=== PATIENT | male | born 1955 | race Caucasian/White ===

== ENCOUNTER 2017-05-24 06:06 | Day surgery (SDC) | payer MEDICARE ==
[~2017-05-24] VITALS: Ht 177.8 cm; Wt 97.8 kg
[~2017-05-24 06:06] MED LIST: ALBUS PO; CARV6.252 PO; FENO1TAB76 PO; IPRA.5I INH; LISI-363 PO; LOVA20TA PO; PRED20 PO; PRIL2.5P PO; ZITH250T PO
--- NOTE | 2017-05-24 06:56 | HHI.HP ---
History of Present Illness Chief Complaint: R>L leg claudication History of Present Illness 61 yo male with 200 yard claudication, no rest pain or tissue loss. Has tried exercise therapy without relief of sx. Presents for angiogram Past/Family/Social History Past Medical History CAD HTN PAD Past Surgical History CABG Social History former smoker Family History [place] Home Medications Active Scripts Azithromycin (Zithromax Z-Mil)250 Mg [id number] Mg PO DIRECTED #6 TAB 500 MG (2 TABLETS) PO ON DAY 1, THEN 250 MG (1 TABLET) PO ON DAYS 2 TO 5. Prov:Bjorn Sheth MD 07/16/14 Prednisone (Deltasone)20 Mg Tab60 Mg PO DAILY 4 Days Prov:Bjorn Sheth MD 07/16/14 Reported Medications Ipratropium [place] (Resp: Atrovent 0.5 mg/2.5 ml Neb)0.5 Mg/2.5 Ml Nebu0.5 Mg INH BID 07/16/14 Albuterol Sulfate 2 Mg/5 Ml Syp0.5 Mg PO BID 07/16/14 Omeprazole Magnesium 2.5 mg granule pkt (Prilosec 2.5 mg granule pkt)2.5 Mg PowUnknown Dose PO 07/16/14 Carvedilol 6.25 mg 6.25 Mg Tab6.25 Mg PO BID 07/16/14 Lisinopril 20 mg 20 Mg Tab20 Mg PO DAILY 07/16/14 Lovastatin 20 Mg Tab20 Mg PO HS 07/16/14 Fenofibrate (Tricor)48 Mg Tab16 Mg PO DAILY 07/16/14 Coded Allergies: No Known Allergies (Verified , 07/16/14) Review of Systems Constitutional: DENIES: Fever Cardiovascular: COMPLAINS OF: Syncope, Claudication, DENIES: Chest pain, Lower Extremity Edema Physical Exam Neuro: resting comfortably, no distress HEENT: NC/AT Neck: no JVD Heart: reg rate, no M Lungs: clear B Abdomen: NT Vascular: weak L femoral pulse no R pedal pulse Extremities: No C/C/E pending pending Assessment and Plan Plan life-style limiting claudication R LE plan for aortogram and LE angiogram with potential endovascular intervention Pt aware of risks and benefits and all questions answered. Operative side marked. To OR. Pankaj Camacho MD May 24, 2017 06:56
[2017-05-24] MEDS ORDERED: IPRA0.02 NEB (06:58)
[2017-05-24] MEDS ORDERED: ISOS30TA15 (06:58)
[2017-05-24] MEDS ORDERED: COQ-50CA2 PO (06:58)
[2017-05-24] MEDS ORDERED: AMLO10TA2 PO (06:58)
[2017-05-24] MEDS ORDERED: PRAV80TA2 PO (06:58)
[2017-05-24] MEDS ORDERED: LOSA100T PO (06:58)
[2017-05-24] MEDS ORDERED: OMEP10CA PO (06:58)
[2017-05-24] MEDS ORDERED: ASPI325T PO (06:58)
[2017-05-24] MEDS ORDERED: CARV12.52 PO (06:58)
[2017-05-24 07:08] VITALS: BP 156/81; PULSE 86; RESP 18; TEMP 98.7; O2SAT 96
[2017-05-24 07:31] LABS: BASOPHIL # 0.1 TH/MM3 (0-0.2); BASOPHIL % 0.6 % (0.0-2.0); EOSINOPHIL # 0.3 TH/MM3 (0-0.4); EOSINOPHIL % 2.6 % (0.0-4.0); HEMATOCRIT 42.5 % (39.0-51.0); HEMO FLAGS DIFF FINAL; LYMPH % 29.1 % (9.0-44.0); LYMPHOCYTE # 3.4 TH/MM3 (1.0-4.8); MEAN CORPUSCULAR HEMOGLOBIN 29.8 PG (27.0-34.0); MEAN CORPUSCULAR HGB CONC 34.2 % (32.0-36.0); MONO % 7.2 % (0.0-8.0); NEUT % 60.5 % (16.0-70.0); PLATELET COUNT 231 TH/MM3 (150-450); RED BLOOD COUNT 4.89 MIL/MM3 (4.50-5.90); RED CELL DISTRIBUTION WIDTH 13.3 % (11.6-17.2); WHITE BLOOD COUNT 11.5 TH/MM3 (4.0-11.0)
[2017-05-24 07:48] LABS: BICARBONATE 26.2 MEQ/L (21.0-32.0); POTASSIUM 3.7 MEQ/L (3.5-5.1)
[2017-05-24] MEDS ORDERED: HEPARIN SODIUM - IV 10,000 UNITS/10 ML VIAL ONE (07:51)
[2017-05-24] MEDS ORDERED: MIDAZOLAM HCL 5 MG/ML VIAL (1 ML) ONE (07:52)
[2017-05-24] MEDS ORDERED: SODIUM BICARBONATE 100 MEQ in D5W 1000 ML IV SCH (08:00)
[2017-05-24] MEDS ORDERED: IOHEXOL 300 MG/ML 50 ML BTL (for RAD DIAG) OTHER ONE ×2 (08:18→08:51)
[2017-05-24] MEDS ORDERED: IOHEXOL 300 MG/ML 100 ML BTL (for Rad CT) OTHER ONE (08:19)
[2017-05-24] MEDS ORDERED: ceFAZolin 2 GM PREMIX 50 ML ONE (08:46)
--- NOTE | 2017-05-24 09:11 | HHI.PR ---
Immediate Post Op Note Procedure Date: May 24, 2017 Pre Op Diagnosis: PAD, B LE with claudication Post Op Diagnosis: PAD, B LE with claudication Surgeon: Pankaj Camacho Mechanic Insulator(s): none Procedure: 1. Aortogram w/ R LE angiogram 2. L SUSAN CANDY FORMING MACHINE OPERATOR (8mm) 3. R SFA CANDY FORMING MACHINE OPERATOR and stent (6x150, 6x120 Protege) 4. L COTTAGE CHEESE MAKER Angioseal Findings: 1. Stenosis L SUSAN at bifurcation - successful CANDY FORMING MACHINE OPERATOR 2. occlusion R SFA - recanalized and CANDY FORMING MACHINE OPERATOR/stent Additional Information: palpable R PT at conclusion Complications: none Specimen(s) removed: none Estimated blood loss: 10mL Anesthesia: MAC Drains: None IVF Patient to: Other (DOCU) Patient Condition: Good Implant/Devices: SEE IMPLANT LOG (if applicable) Date/Time of Procedure: SEE SURGICAL CARE RECORD Pankaj Camacho MD May 24, 2017 09:11
[2017-05-24] MEDS ORDERED: CLOPIDOGREL 75 MG TAB PO ONE (09:15)
[2017-05-24] MEDS ORDERED: ASPIRIN 81 MG CHEW TAB ONE (09:37)
[2017-05-24] MEDS ORDERED: PLAV75TA29 PO (09:59)
[2017-05-25] MEDS ORDERED: ASPIRIN EC 81 MG TABEC PO SCH (09:00)
[2017-05-26] MEDS ORDERED: CLOPIDOGREL 75 MG TAB PO SCH (09:00)
--- NOTE | 2017-05-27 08:16 | MP ---
cc: GRISELDA CAMACHO MD DATE OF SURGERY 05/24/2017 PREOPERATIVE DIAGNOSIS Peripheral arterial occlusive disease, bilateral lower extremity with claudication. POSTOPERATIVE DIAGNOSIS Peripheral arterial occlusive disease, bilateral lower extremity with claudication. PROCEDURES 1. Aortogram with right lower extremity angiogram. 2. Left common iliac artery angioplasty with 8 mm balloon. 3. Right SFA angioplasty and stent 6 x 150, 6 x 120 Protege. 4. Left common femoral artery Angio-Seal. ATTENDING SURGEON Griselda Camacho MD ANESTHESIA Local with sedation. INDICATION Mr. Holt is a 61-year-old gentleman with right greater than left leg claudication. No palpable left femoral pulse and no palpable right pedal pulses. He is taken to the operating room for angiographic evaluation and treatment. There is no prior catheter-based imaging available for my review. DESCRIPTION OF THE PROCEDURE Informed consent was obtained. The patient was to the operating room and placed supine on the operating room table. An appropriate time-out was taken to ensure the patient's identity, operative site and planned procedure. The administration of 2 grams of Ancef was initiated prior to stent implantation and will be discontinued after single preoperative dose. Everyone in the room agreed to time-out and we proceeded. His bilateral groins were prepped and draped and the left groin was anesthetized with 1% lidocaine. A 21 gauge micropuncture needle was used to access the left common femoral artery. It was exchanged using Seldinger technique for micropuncture sheath through which a 0.035 Glidewire was introduced. The micropuncture sheath was changed for a 5-Grenadian sheath. A VCF catheter was placed over the wire and through the sheath and aortogram pelvic arteriogram was obtained. The patient was systemically heparinized with 5000 units of IV heparin. A Hendricks wire was passed through the VCF catheter and the VCF catheter and 5-Grenadian sheath were removed and 6-Grenadian 10 cm sheath was introduced. Through the 6-Grenadian sheath and over the Hendricks wire an 8 x 40 balloon was used to angioplasty the left common iliac artery. The completion angiogram showed excellent results without any recoil or extravasation. A VCF catheter was placed over the Hendricks wire and the Hendricks was exchanged for a glide and the glide was used to navigate down to the right common femoral artery and the VCF catheter was advanced over this. A right lower extremity arteriogram was obtained. The Hendricks wire was reintroduced and navigated down the right profunda. The VCF catheter and 6-Grenadian sheath were removed and a 6-Grenadian 55 cm Eh sheath was introduced. A CXI catheter was placed over this and the Hendricks was exchanged for a LPN PRIVATE DUTY wire. Using the LPN PRIVATE DUTY and CXI catheter we were able to navigate only a few centimeters into the occluded SFA. The LPN PRIVATE DUTY wire was exchanged for a Glidewire and this was used to create a subintimal plane which was used to recannulize the entire SFA. We were able to re-enter the true lumen in the distal SFA and this was confirmed angiographically. The Hendricks wire was then reintroduced over the CXI catheter and the entire SFA was angioplastied with a 5-mm balloon. The completion angiogram showed a residual dissection that appeared to be flow limiting and this was treated with two 6-mm stents which were postdilated to 5 mm. A completion angiogram was obtained. The wire catheter and sheath removed. The groin was closed with AngioSeal. The were no complications. I was present and scrubbed and performed the entire procedure. INTERPRETATION IMAGES The patient has patent infrarenal aorta, common iliac arteries bilaterally. The left common iliac artery has a high-grade stenosis at the origin of the hypogastric artery but the external iliac artery is patent. The right common external and hypo are all patent. After angioplasty of the left common iliac artery there is excellent radiographic result without any recoil, extravasation or flow-limiting dissection. The right common femoral artery and profunda are patent. The SFA is patent for about a centimeter and then it occludes. The profunda based collaterals reconstitute the distal SFA and the popliteal artery is patent. Infrapopliteal blood vessels include the posterior tibial artery and the peroneal artery but no anterior tibial artery. After recanalization of the SFA and angioplasty there is a flow-limiting dissection that is adequately treated with self-expanding stents. After stent implantation there is good brisk flow through the SFA without any recoil, extravasation or flow-limiting dissection. There was no embolic complication. MD SUZANNE Oakley/JOAN /9:41 PM /8:06 AM
== END 2017-05-24 11:45 | disposition home or self-care (01) ==
LOC: HSDC 06:06 → EDBD 06:06 → HDIC 06:07 → HSDC 11:45
PROVIDERS: ATTEND Surgery
DX: I73.9 Peripheral vascular disease, unspecified (principal); I10 Essential (primary) hypertension; I25.10 Atherosclerotic heart disease of native coronary artery without angina pectoris; Z95.1 Presence of aortocoronary bypass graft; Z87.891 Personal history of nicotine dependence; Z01.818 Encounter for other preprocedural examination
CPT/HCPCS: 37220; 37226; 75716; 80048; 85025; C1725; C1769; C1876; J0690; J1644; J2250; J3010; Q9967

== ENCOUNTER 2018-03-12 11:50 | Emergency (ER) | payer MEDICARE ==
[~2018-03-12] VITALS: Ht 177.8 cm; Wt 96.0 kg
[~2018-03-12 11:50] MED LIST changes: -ALBUS PO; +AMLO10TA2 PO; +ASPI-183 PO; +CARV12.52 PO; -CARV6.252 PO; +COQ-50CA2 PO; -FENO1TAB76 PO; -IPRA.5I INH; +IPRA0.02 NEB; +ISOS30TA17; -LISI-363 PO; +LOSA100T PO; -LOVA20TA PO; +OMEP10CA PO; +PLAV75TA29 PO; +PRAV80TA2 PO; -PRED20 PO; -PRIL2.5P PO; -ZITH250T PO
[2018-03-12 11:55] VITALS: BP 142/86; PULSE 82; RESP 18; TEMP 97.8; O2SAT 97
--- NOTE | 2018-03-12 12:24 | PD ---
HPI Chief Complaint: Dizziness Time Seen by Provider: 12:10 Travel History International Travel<30 days: No Contact w/Intl Traveler<30days: No Traveled to known affect area: No History of Present Illness HPI 62-year-old male complains of no swelling, lip swelling, itching rash. Patient states that he started having those swelling about 3 days ago. Patient states that the symptoms get better and make it worse again since last night. Patient complained of lip swelling this morning and increase in toe swelling this morning. Patient states that he has itching rash on the hands and feet also. Patient states that he has intermittent dizziness and generalized malaise and weakness for the past 2- 3 days. Patient has history hypertension, diabetes, hyperlipidemia. Patient is a smoker. Patient has history of CAD status post CABG and stent placement. Patient on losartan for a long time. Patient also on Plavix. PFSH Past Medical History Hx Anticoagulant Therapy: Yes Anxiety: No Depression: No Cancer: No Cardiovascular Problems: Yes ([place], CABG) High Cholesterol: Yes COPD: Yes Coronary Artery Disease: Yes Endocrine: No Gastrointestinal Disorders: Yes GERD: Yes Genitourinary: No Hypertension: Yes Musculoskeletal: Yes Psychiatric: No Reproductive: No Respiratory: Yes (COPD) Immunizations Current: Yes ?: Not Past Surgical History Coronary Artery Bypass Graft: Yes (LAST YEAR) Joint Replacement: Yes (pins in his left ankle) Other Surgery: Yes Social History Alcohol Use: No Tobacco Use: Yes (1 PPD) Substance Use: No Allergies-Medications (Allergen,Severity, Reaction): Coded Allergies: No Known Allergies (Verified Adverse Reaction, Unknown, 03/12/18) Reported Meds & Prescriptions Reported Meds & Active Scripts Active Reported Carvedilol 25 Mg Tab 25 Mg PO BID Plavix (Clopidogrel Bisulfate) 75 Mg Tab 75 Mg PO DAILY Pravastatin 80 Mg Tab 80 Mg PO DAILY Omeprazole 10 Mg Cap 10 Mg PO DAILY Losartan (Losartan Potassium) 100 Mg Tab 100 Mg PO DAILY Isosorbide Dinitrate 30 Mg Tab Ipratropium Neb (Ipratropium [place]) 0.5 Mg/2.5 Ml Amp 0.5 Mg NEB Q12HR NEB Coq-10 (Coenzyme Q10 (Ubidecarenone)) 50 Mg Cap 100 Mg PO DAILY Amlodipine (Amlodipine Besylate) 10 Mg Tab 10 Mg PO DAILY Aspirin 325 Mg Tab 325 Mg PO DAILY Review of Systems General / Constitutional: No: Fever Eyes: No: Visual changes HENT: No: Headaches Cardiovascular: No: Chest Pain or Discomfort Respiratory: No: Shortness of Breath Gastrointestinal: No: Abdominal Pain Genitourinary: No: Dysuria Musculoskeletal: No: Pain Skin: No Rash Neurologic: No: Weakness Psychiatric: No: Depression Endocrine: No: Polydipsia Hematologic/Lymphatic: No: Easy Bruising Physical Exam Narrative GENERAL: Well-nourished, well-developed patient. SKIN: Focused skin assessment warm/dry. Patient has mild redness of skin on the forehead, forearms, hands. HEAD: Normocephalic. EYES: No scleral icterus. No injection or drainage.. Throat: Mild edema of the pharynx area with uvula edema. NECK: Supple, trachea midline. No JVD or lymphadenopathy. CARDIOVASCULAR: Regular rate and rhythm without murmurs, gallops, or rubs. RESPIRATORY: Breath sounds equal bilaterally. No accessory muscle use. GASTROINTESTINAL: Abdomen soft, non-tender, nondistended. MUSCULOSKELETAL: No cyanosis, or edema. BACK: Nontender without obvious deformity. No CVA tenderness. Neurologic exam normal. Data Data Last Documented VS Vital Signs Date Time Temp Pulse Resp B/P (MAP) Pulse Ox O2 Delivery O2 Flow Rate FiO2 03/12/18 12:54 75 18 150/83 (105) 97 Room Air 03/12/18 11:55 97.8 Orders Orders Basic Metabolic Panel (Bmp) (03/12/18 12:18) Complete Blood Count With Diff (03/12/18 12:18) Ecg Monitoring (03/12/18 12:18) Iv Access Insert/Monitor (03/12/18 12:18) Oximetry (03/12/18 12:18) Diphenhydramine Inj (Benadryl Inj) (03/12/18 12:30) Methylprednisolone So Succ Inj (Solumedr (03/12/18 12:30) Sodium Chloride 0.9% Flush (Ns Flush) (03/12/18 12:30) Ranitidine Liq (Zantac Liq) (03/12/18 12:30) Famotidine (Pepcid) (03/12/18 12:45) Methylprednisolone So Succ Inj (Solumedr (03/12/18 12:45) Labs Laboratory Tests Test 03/12/18 12:20 03/12/18 12:30 White Blood Count 10.6 TH/MM3 Red Blood Count 5.44 MIL/MM3 Hemoglobin 15.7 GM/DL Hematocrit 47.3 % Mean Corpuscular Volume 86.8 FL Mean Corpuscular Hemoglobin 28.9 PG Mean Corpuscular Hemoglobin Concent 33.3 % Red Cell Distribution Width 12.6 % Platelet Count 259 TH/MM3 Mean Platelet Volume 8.1 FL Neutrophils (%) (Auto) 73.9 % Lymphocytes (%) (Auto) 19.5 % Monocytes (%) (Auto) 4.6 % Eosinophils (%) (Auto) 1.4 % Basophils (%) (Auto) 0.6 % Neutrophils # (Auto) 7.8 TH/MM3 Lymphocytes # (Auto) 2.1 TH/MM3 Monocytes # (Auto) 0.5 TH/MM3 Eosinophils # (Auto) 0.1 TH/MM3 Basophils # (Auto) 0.1 TH/MM3 CBC Comment DIFF FINAL Differential Comment Blood Urea Nitrogen 21 MG/DL Creatinine 0.62 MG/DL Random Glucose 126 MG/DL Calcium Level 8.7 MG/DL Sodium Level 138 MEQ/L Potassium Level 4.2 MEQ/L Chloride Level 104 MEQ/L Carbon Dioxide Level 27.1 MEQ/L Anion Gap 7 MEQ/L Estimat Glomerular Filtration Rate 131 ML/MIN [facility] Medical Decision Making Medical Screen Exam Complete: Yes Emergency Medical Condition: Yes Interpretation(s) 1325 PM. CBC within normal limits. BMP within normal limits. Differential Diagnosis Differential diagnosis including allergic reaction, angioedema, side effect of losartan. Narrative Course 62-year-old male with itching rash, no swelling, lip swelling. Unknown exposure. Benadryl 25 mg IV. Solu-Medrol 125 mg IV. Zantac 300 mg p.o. 1:27 PM. Patient feels much better. Decrease in swelling of the lips and the uvula. No itching rash. I do not think it is angioedema from taking losartan. Diagnosis Primary Impression: Allergic reaction Qualified Codes: T78.40XA - Allergy, unspecified, initial encounter Patient Instructions: General Instructions Additional Instructions: Take medication as directed. Follow-up with [facility] and personal physician. Return if worse. Return immediately if increasing shortness of breath or throat swelling. Accu-Chek blood sugar daily while on prednisone. Med/Other Pt SpecificInfo: Prescription(s) given Scripts Ranitidine (Zantac) 300 Mg Tab 300 MG PO DAILY, #10 TAB 0 Refills Prov: Tomas Owen MD 03/12/18 Cetirizine HCl (Zyrtec) 10 Mg Capsule 1 TAB PO DAILY, #10 Prov: Tomas Owen MD 03/12/18 Prednisone (Prednisone) 20 Mg Tab 20 MG PO DAILY, #7 TAB 0 Refills Prov: Tomas Owen MD 03/12/18 Disposition: 01 DISCHARGE HOME Condition: Stable Tomas Owen MD March 12, 2018 12:24
[2018-03-12 12:30] VITALS: O2SAT 97
[2018-03-12] MEDS ORDERED: SODIUM CHLORIDE 0.9% FLUSH 10 ML FLUSH IV FLUSH PRN (12:30)
[2018-03-12] MEDS ORDERED: diphenhydrAMINE HCL 50 MG/ML VIAL IVP ONE (12:30)
[2018-03-12] MEDS ORDERED: methylPREDNISolone SOD SUCC 125 MG/2 ML VIAL IM ONE (12:30)
[2018-03-12] MEDS ORDERED: RANITIDINE HCL SYRUP 150 MG/10 ML UDC PO ONE (12:30)
[2018-03-12] MEDS ORDERED: methylPREDNISolone SOD SUCC 125 MG/2 ML VIAL IV PUSH ONE (12:45)
[2018-03-12] MEDS ORDERED: FAMOTIDINE 20 MG TAB PO ONE (12:45)
[2018-03-12 12:54] VITALS: BP 150/83; PULSE 75; RESP 18; O2SAT 97
[2018-03-12 13:03] LABS: AUTOMATED NEUTROPHIL # 7.8 TH/MM3 (1.8-7.7); BASOPHIL # 0.1 TH/MM3 (0-0.2); BASOPHIL % 0.6 % (0.0-2.0); EOSINOPHIL # 0.1 TH/MM3 (0-0.4); EOSINOPHIL % 1.4 % (0.0-4.0); HEMATOCRIT 47.3 % (39.0-51.0); HEMOGLOBIN 15.7 GM/DL (13.0-17.0); LYMPH % 19.5 % (9.0-44.0); LYMPHOCYTE # 2.1 TH/MM3 (1.0-4.8); MEAN CELL VOLUME 86.8 FL (80.0-100.0); MEAN CORPUSCULAR HEMOGLOBIN 28.9 PG (27.0-34.0); MEAN CORPUSCULAR HGB CONC 33.3 % (32.0-36.0); MEAN PLATELET VOLUME 8.1 FL (7.0-11.0); MONO % 4.6 % (0.0-8.0); MONOCYTE # 0.5 TH/MM3 (0-0.9); NEUT % 73.9 % (16.0-70.0); PLATELET COUNT 259 TH/MM3 (150-450); RED BLOOD COUNT 5.44 MIL/MM3 (4.50-5.90); RED CELL DISTRIBUTION WIDTH 12.6 % (11.6-17.2); WHITE BLOOD COUNT 10.6 TH/MM3 (4.0-11.0)
[2018-03-12 13:11] LABS: CALCIUM 8.7 MG/DL (8.5-10.1)
[2018-03-12 13:12] LABS: BICARBONATE 27.1 MEQ/L (21.0-32.0)
[2018-03-12] MEDS ORDERED: CARV25TA PO (13:12)
[2018-03-12 13:15] LABS: CREATININE 0.62 MG/DL (0.60-1.30)
[2018-03-12] MEDS ORDERED: PRED20 PO (13:33)
[2018-03-12] MEDS ORDERED: CETI10CA3 PO (13:33)
[2018-03-12] MEDS ORDERED: ZANT300T PO (13:33)
[2018-03-12 13:54] VITALS: BP 144/83
== END 2018-03-12 13:55 | disposition home or self-care (01) ==
LOC: PHED 11:50
DX: T78.40XA Allergy, unspecified, initial encounter (principal); R22.0 Localized swelling, mass and lump, head; R21 Rash and other nonspecific skin eruption; I25.10 Atherosclerotic heart disease of native coronary artery without angina pectoris; E11.9 Type 2 diabetes mellitus without complications; I10 Essential (primary) hypertension; E78.5 Hyperlipidemia, unspecified; J44.9 Chronic obstructive pulmonary disease, unspecified; F17.200 Nicotine dependence, unspecified, uncomplicated
CPT/HCPCS: 80048; 85025; 96374; 96375; 99284; J1200; J2930